=== PATIENT | male | born 1960 | race Caucasian/White ===

== ENCOUNTER 2021-12-22 19:11 | Emergency (ER) | payer SELFPAY ==
[2021-12-22 19:17] VITALS: BMI 27.3
[2021-12-22 19:21] VITALS: BP 121/68; PULSE 61; RESP 16; TEMP 36.3; O2SAT 97
--- NOTE | 2021-12-22 20:07 | XRR_ITS ---
PROCEDURE INFORMATION: Exam: XR Right Hand Exam date and time: 12/22/2021 8:16 PM Age: 61 years old Clinical indication: Pain; Hand; Right; Additional info: Injury TECHNIQUE: Imaging protocol: Radiologic exam of the Right hand. Views: 3 or more views. COMPARISON: No relevant prior studies available. FINDINGS: Bones/joints: Old healed fracture deformities of the 1st and 5th metacarpals. No acute fracture is seen. No dislocation. Soft tissues: No abnormal soft tissue calcifications. No radiopaque foreign body. XR/XR hand RT min 3V* [id number] IMPRESSION: Old healed fracture deformities of the 1st and 5th metacarpals. No acute fracture or dislocation.
--- NOTE | 2021-12-22 20:07 | W.ED.EXTPRO ---
HPI - Extremity Problem General: Chief complaint: Extremity Injury, Upper Stated complaint: right hand injury Time Seen by Provider: 12/22/21 20:04 History of Present Illness: 61-year-old male patient comes in today for injury to the dorsal right hand. Patient was at work today and believes he hit his hand against the equipment. Patient reports some tenderness to the dorsal aspect of the hand. There is obvious swelling to the hand patient has normal range of motion. Review of Systems General: Reports: 10 or more systems reviewed and unremarkable except in HPI and below Musc: Reports: extremity pain and extremity swelling Physical Exam Const: COMMON NORMALS: alert HENMT: COMMON NORMALS: atraumatic HEAD & SCALP: atraumatic Neck/C-Spine: COMMON NORMALS: full ROM Resp: COMMON NORMALS: normal respiratory effort Cardio: COMMON NORMALS: regular rate RATE: regular rate Extremity: RIGHT UPPER EXTREMITY: Yes hand & digits (Mild swelling and tenderness noted to the dorsal hand) Right hand and digits: Yes inspection, Yes palpation and Yes ROM exam (Normal) Neuro: SENSORIUM/ORIENTATION: Yes alert Skin: COMMON NORMALS: no rashes or lesions noted GENERAL SKIN EXAM: no rashes or lesions noted Course Vital Signs: Vital signs: Vital Signs Temperature 97.3 F L 12/22/21 19:21 Pulse Rate 61 12/22/21 19:21 Respiratory Rate 16 12/22/21 19:21 Blood Pressure 121/68 12/22/21 19:21 Pulse Oximetry 97 12/22/21 19:21 MDM - Extremity (Nontraumatic) Medical Decision Making Patient comes in for evaluation of injury to the right hand. On exam there is some swelling and tenderness to the dorsal right hand. Patient has good normal range of motion of the hand. No palpable crepitus or deformity is noted. Differential diagnosis includes fracture, sprain, contusion, dislocation. X-ray noted no acute fracture or dislocation. Reviewed exam with patient with recommendations for treatment and follow-up. Patient reported understanding agreed to plan. Discharge Plan Discharge Patient Disposition: Home Clinical Impression: Contusion of hand, right Qualifiers: Encounter type: initial encounter Qualified Code(s): S60.221A - Contusion of right hand, initial encounter Condition: Stable Discharge Orders: Discharge ED (Routine); Ordered 12/22/21 Ordered By: Volodymyr Maher Discharge Diet: Usual diet Discharge Activity: Increase activity as tolerated Patient Instructions: Contusion in Adults (ED) Activity Restrictions/Additional Instructions: Wear a elastic bandage for comfort and support. Use ice pack to the area for further pain. Increase activity as tolerated. Follow-up with primary care as needed. Use acetaminophen and ibuprofen to help with pain. Coding Level of Care Code ED Bilingual Hr Generalist for Casey Fwbrent Exam Detailed
== END 2021-12-22 20:39 | disposition home or self-care (01) ==
PROVIDERS: Emergency Provider Nurse Practitioner Family
DX: S60.221A Contusion of right hand, initial encounter (principal); W22.8XXA Striking against or struck by other objects, initial encounter
CPT/HCPCS: 73130; 99283

== ENCOUNTER 2022-10-24 12:56 | Inpatient (IN) | payer MEDICAID, SELFPAY ==
[2022-10-24 13:02] VITALS: BP 129/69; PULSE 62; RESP 16; TEMP 36.9; O2SAT 98; BMI 24.6
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
--- NOTE | 2022-10-24 13:33 | CT_ITS ---
WS: [id number] CT NECK WITH CONTRAST HISTORY: L neck abscess TECHNIQUE: Contiguous 2 mm axial images are performed through the neck with intravenous contrast. Sa gittal and coronal reformats are also submitted. All CT scans at [facility] use at least one of these dose optimization techniques: automated exposure control; mA and/or kV adjustment per patien t size (includes targeted exams where dose is matched to clinical indication); or iterative reconstru ction. CONTRAST: CONTRAST: Omnipaque 350; 100 mL IV. DLP: 188.88 mGy.cm COMPARISON: None available. Nasopharynx, oropharynx, hypopharynx and larynx are unremarkable. No soft tissue masses or abnormal e nhancement. Torus tubarius and fossa of Rosenmuller and parapharyngeal fat are normal. Mildly hyperemic and reactive lymph nodes are noted involving level 5A lymph nodes on the left with t he largest measuring 12 mm in diameter. Moderate amount of soft tissue inflammatory changes with edema and skin thickening along the left fac ial bones and submandibular region. There is thickening and edema extending along the left platysmas muscle. Edema extends over the mandible and maxilla and masseter space. There is no well-formed fluid collection. Soft tissue edema extends near the midline at the level of the hyoid bone. No compromise of the airway. No abnormality noted at the vocal cord level. Moderate degenerative changes at C5-6 and C6-7. C5 retrolisthesis by 4 mm. Mild ethmoid air cell disease. Negative orbits and globes. Mastoid air cells are clear. Mild atherosclerosis involving the cervical carotid arteries. No occlusi ons or obstructions. Thyroid gland is negative. Lung apices are clear. IMPRESSION: 1. Moderate soft tissue edema along the left facial bones to include the masseter space and the platy smas. There is no focal abscess collection. The source of the edema is probably infectious or inflamm atory. There are a few reactive lymph nodes at level 5A on the left. No obstruction of the parotid or submandibular ducts are identified. Etiology may be dental in origin but there is no obvious dental caries. 2. No compromise of the airway.
[2022-10-24] MEDS: vancomycin 1,000 MG in sodium chloride 0.9% 250 ML 250 MG IV (13:44)
[2022-10-24 13:47] LABS: Basophils % 0.2 %; Eosinophils # 0.1 10^3/uL (0.0-0.8); Eosinophils % 0.6 %; Hematocrit 39.1 % (42.0-52.0); Hemoglobin 13.5 g/dL (11.7-16.6); Lymphocytes % 18.8 %; Mean Corpuscular HGB Conc 34.5 g/dL (30.0-36.0); Mean Corpuscular Hemoglobin 32.4 pg (28.0-34.0); Mean Corpuscular Volume 93.8 fl (80-94); Mean Platelet Volume 9.1 fL (7.4-10.4); Monocytes # 1.2 10^3/uL (0.2-0.9); Monocytes % 11.6 %; Neutrophils % 68.1 %; Nucleated Red Blood Cells % 0 %; Platelet Count 142 10^3/cmm (130-400); Red Blood Count 4.17 10^6/uL (4.1-5.3); Red Cell Distribution Width 12.5 % (12.1-15.1); White Blood Count 10.7 10^3/uL (4.0-10.0)
[2022-10-24 13:55] LABS: Alanine Aminotransferase 16 U/L (0-41); Albumin Level 4.1 g/dL (3.5-5.2); Alkaline Phosphatase 76 U/L (40-130); Anion Gap 15.7 (5-19); Aspartate Amino Transferase 16 U/L (0-40); Blood Urea Nitrogen 14 mg/dL (6-20); Calcium 8.9 mg/dL (8.5-10.5); Carbon Dioxide 22 mmol/L (22-29); Chloride 105 mmol/L (98-107); Globulin 2.8 g/dL (1.3-4.6); Glomerular Filtration Rate 86.4 mL/min (90-130); Glucose 115 mg/dL (65-115); Osmolality Calculated 289 mOsm/kg (285-295); Potassium 3.7 mmol/L (3.5-5.1); Sodium 139 mmol/L (136-145); Total Bilirubin 0.4 mg/dL (0.15-1.2); Total Protein 6.9 g/dL (6.6-8.7)
[2022-10-24 13:56] LABS: Lactic Sepsis W/Reflex 0.9 mmol/L (0.5-2.2)
[2022-10-24] MEDS: iohexol 350 mg/mL 500 mL Btl (per mL) IV (14:00)
[2022-10-24 14:16] VITALS: BP 125/73; PULSE 56; O2SAT 96
[2022-10-24 15:15] VITALS: BP 134/89; PULSE 98; O2SAT 99
--- NOTE | 2022-10-24 15:58 | PC.NURSE ---
Food provided with Dr. Judge's permission.
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
[2022-10-24 17:13] VITALS: BP 128/74; PULSE 85; RESP 15; TEMP 36.8; O2SAT 95
[2022-10-24] MEDS: metroNIDAZOLE IV 500 MG/100 ML PREMIX 100 MG IV (18:04)
[2022-10-24] MEDS: cefepime 2,000 MG in sodium chloride 0.9% (plus) 50 ML 100 MG IV (18:04)
[2022-10-24] MEDS: sodium chloride 0.9% 1,000 ML 100 ML IV (18:04)
[2022-10-24 20:00] VITALS: BP 132/84; PULSE 77; RESP 19; TEMP 37.9; O2SAT 97
[2022-10-24] MEDS: vancomycin 1,250 MG/250 ML PIGGYBACK 200 MG IV (21:05)
[2022-10-24] MEDS: acetaminophen 325 mg Tablet 650 MG PO (21:11)
[2022-10-24 23:35] VITALS: BP 126/64; PULSE 74; RESP 19; TEMP 37.3; O2SAT 96
[2022-10-25] MEDS: metroNIDAZOLE IV 500 MG/100 ML PREMIX 100 MG IV ×2 (00:30→10:54)
[2022-10-25 04:00] VITALS: BP 132/72; PULSE 64; RESP 19; TEMP 36.9; O2SAT 97
[2022-10-25] MEDS: sodium chloride 0.9% 1,000 ML 100 ML IV ×2 (05:16→16:08)
[2022-10-25] MEDS: cefepime 2,000 MG in sodium chloride 0.9% (plus) 50 ML 100 MG IV ×2 (05:16→18:04)
[2022-10-25 05:17] LABS: Basophils % 0.4 %; Eosinophils # 0.3 10^3/uL (0.0-0.8); Eosinophils % 2.6 %; Hematocrit 36.1 % (42.0-52.0); Hemoglobin 12.2 g/dL (11.7-16.6); Lymphocytes # 2.1 10^3/uL (0.8-4.8); Lymphocytes % 20.8 %; Mean Corpuscular HGB Conc 33.8 g/dL (30.0-36.0); Mean Corpuscular Hemoglobin 32.5 pg (28.0-34.0); Mean Corpuscular Volume 96.3 fl (80-94); Mean Platelet Volume 9.3 fL (7.4-10.4); Monocytes # 1.2 10^3/uL (0.2-0.9); Monocytes % 12.1 %; Neutrophils # 6.38 10^3/uL (1.8-7.7); Neutrophils % 63.7 %; Nucleated Red Blood Cells % 0 %; Platelet Count 138 10^3/cmm (130-400); Red Blood Count 3.75 10^6/uL (4.1-5.3); Red Cell Distribution Width 12.6 % (12.1-15.1)
[2022-10-25 05:49] LABS: Anion Gap 12.7 (5-19); Blood Urea Nitrogen 15 mg/dL (6-20); Calcium 8.5 mg/dL (8.5-10.5); Carbon Dioxide 22 mmol/L (22-29); Chloride 109 mmol/L (98-107); Glomerular Filtration Rate 98.9 mL/min (90-130); Glucose 100 mg/dL (65-115); Osmolality Calculated 291 mOsm/kg (285-295); Potassium 3.7 mmol/L (3.5-5.1); Sodium 140 mmol/L (136-145)
[2022-10-25 07:36] VITALS: BP 118/77; PULSE 70; RESP 21; TEMP 36.5; O2SAT 95
[2022-10-25] MEDS: acetaminophen 325 mg Tablet 650 MG PO ×2 (07:54→16:16)
[2022-10-25] MEDS: vancomycin 1,250 MG/250 ML PIGGYBACK 200 MG IV ×2 (09:25→20:02)
--- NOTE | 2022-10-25 09:34 | PC.CHAP ---
Pastoral Care Encounter/Spiritual Assessment Type of Contact [] Declined slabber visit [] Patient/Family/Request visit [] Outpatient visit [] Follow-up visit [] Physician referral [] Code/Alert [x] Routine visit [] Staff referral [] Actively dying [] Patient sleeping [] Family support [] [] Out of room [] Palliative care [] [] Receiving care in room [] Pre-surgical visit [] Trauma [] Long length of stay [] ICU visit [] Other: Relational/Emotional Strength [x] Patient feels connected with others/family/visitors/staff [] Distress [] Loneliness/isolation [] Abandonment Spirituality of Patient x] Person of Dacia [] Attends Tenriism of their Dacia [x] Believes in Prayer [] Reads Bible or Synagogue materials [] There are Spiritual issues to be addressed Heat And Frost Insulator Helper Interventions [x] Prayer [x] Active listening [] Non-anxious presence [x] Spiritual/emotional support [] Crisis/trauma care [] Spiritual counseling [] Bereavement support [] Provided bereavement packet [] Provided Bible/devotional materials [] Provided toy/stuffed animal, coloring book to patient or family member [] Provided Communion [] Anointing/[place] [] Salvation [] Completed spiritual assessment [] Other: Impact on Illness or Injury [] Angry [] Fearful [] Anxious [] Often cries [] Exhaustion [] Unable to work [] Unable to attend congregational [] Unable to walk/stand [] Unable to read [] Unable to drive [] Unable to eat/drink [] Unable to sleep [] Unable to be with family [] Patient intubated [] Other: Summary Time spent with patient 5 min
[2022-10-25 11:41] VITALS: BP 126/78; PULSE 62; RESP 18; TEMP 36.5; O2SAT 97
[2022-10-25] MEDS: lanolin oint 7 gm 1 APPLIC TOPICAL (12:49)
--- NOTE | 2022-10-25 12:49 | P.PN_ITS ---
Subjective Subjective: He had a low-grade temp overnight, states that he was having sweats. Today feeling slightly better. Still swelling, tenderness left side neck/submandibular localized swelling. Vitals/I&O/Wt Last Vital Signs Temp 97.7 F 10/25/22 11:41 Pulse 62 10/25/22 11:41 Resp 18 10/25/22 11:41 BP 126/78 10/25/22 11:41 Pulse Ox 97 10/25/22 11:41 O2 Del Method Room Air 10/25/22 11:41 10/24/22 10/25/22 10/25/22 22:59 06:59 14:59 Intake Total 890 / 890 1106.667 / 1995.667 600 / 600 Balance 890 / 890 1106.667 / 1995.667 600 / 600 Weight last 48 hrs Weight 75.75 kg Physical Exam Const: COMMON NORMALS: patient oriented x3 and alert GENERAL APPEARANCE: cooperative ORIENTATION/CONSCIOUSNESS: Yes awake HENMT: COMMON NORMALS: oropharynx normal Neck/C-Spine: COMMON NORMALS: no JVD OTHER: Left-sided neck erythema surrounding central area of swelling upper neck/left submandibular area, small area of eschar/excoriation, no drainage. No tunneling or undermining. Resp: COMMON NORMALS: normal respiratory effort and clear to auscultation bilaterally AUSCULTATION: clear to auscultation bilaterally Cardio: COMMON NORMALS: no JVD, regular rhythm, S1 normal heart sound present, S2 normal heart sound present and No murmurs present (Cardio) RHYTHM: regular rhythm HEART SOUNDS: S1 normal heart sound present and S2 normal heart sound present GI: COMMON NORMALS: Normal to inspection, nondistended, normoactive bowel soun ds present, Soft to palpation and non-tender PALPATION: Yes Soft to palpation Extremity: COMMON NORMALS: no joint enlargement and no pedal edema Neuro: COMMON NORMALS: patient oriented x3 and moves all extremities SENSORIUM/ORIENTATION: Yes alert Skin: COMMON NORMALS: no rashes or lesions noted GENERAL SKIN EXAM: no rashes or lesions noted OTHER: As above Data 10/25/22 04:36 10/25/22 04:36 Micro: Microbiology 10/24/22 13:46 Blood Culture - Preliminary Blood SPECIMEN COLLECTED 10/24/22 13:44 Blood Culture - Preliminary Blood SPECIMEN COLLECTED A&P Assessment and plan (1) Cellulitis: Slightly less intensely erythematous left side neck, no decrease in the size of erythematous area, but without further expansion. Localized swelling persists. No drainage. We will stop Flagyl. Overnight with low-grade temp on 100.4. Sweats. No leukocytosis, no sepsis. Discussed with him options, continue observation hospital for now with IV antibiotics and will reassess due to risk of localized infection spread, with improvement consideration of discharge home with oral antibiotic, otherwise in case of worsening or drainage consideration of reimaging. WBC noted with improvement noted 10. Neutrophils WNL. Chemistry noted unremarkable with unremarkable kidney and liver parameters. Noted improved sinus tachycardia. Pain control as needed for now with Tylenol, Toradol. (2) Smoking addiction: Continue to encourage cessation. nicotine patches, lozenges will be available for him, he declines to start timeout right. As per discussion ordering as needed. Plan Discussed with discharge planning. Attestations Medical Necessity Statement*: Requires continued hospitalization for assessment management of large area of cellulitis on the left side neck, submandibular area with also localized swelling and a gentleman with history of recurrent abscesses. Diagnoses Cellulitis L03.90 Smoking addiction F17.200
[2022-10-25 16:00] VITALS: BP 154/74; PULSE 66; RESP 20; TEMP 36.4; O2SAT 96
[2022-10-25] MEDS: HYDROcodone-acetaminophen 5-325 mg Tablet 1 TAB PO (17:16)
[2022-10-25 19:46] VITALS: BP 133/66; PULSE 68; RESP 18; TEMP 36.8; O2SAT 95
[2022-10-25] MEDS: guaiFENesin 600 mg Tablet 1200 MG PO (20:01)
[2022-10-26] VITALS (7 sets, daily range): BP systolic 128–160; BP diastolic 9–90; PULSE 53–74; RESP 16–18; TEMP 36.5–37; O2SAT 98–99
[2022-10-26] MEDS: HYDROcodone-acetaminophen 5-325 mg Tablet 1 TAB PO ×3 (00:35→21:20)
[2022-10-26 05:00] LABS: Basophils % 0.4 %; Eosinophils # 0.4 10^3/uL (0.0-0.8); Eosinophils % 4.9 %; Hematocrit 34.3 % (42.0-52.0); Hemoglobin 11.7 g/dL (11.7-16.6); Lymphocytes # 2.3 10^3/uL (0.8-4.8); Mean Corpuscular HGB Conc 34.1 g/dL (30.0-36.0); Mean Corpuscular Hemoglobin 33.3 pg (28.0-34.0); Mean Corpuscular Volume 97.7 fl (80-94); Mean Platelet Volume 9.6 fL (7.4-10.4); Monocytes # 0.9 10^3/uL (0.2-0.9); Monocytes % 10.3 %; Neutrophils # 4.67 10^3/uL (1.8-7.7); Neutrophils % 56.2 %; Nucleated Red Blood Cells % 0 %; Platelet Count 119 10^3/cmm (130-400); Red Blood Count 3.51 10^6/uL (4.1-5.3); Red Cell Distribution Width 12.9 % (12.1-15.1); White Blood Count 8.3 10^3/uL (4.0-10.0)
[2022-10-26 05:23] LABS: Blood Urea Nitrogen 14 mg/dL (6-20); Calcium 8.1 mg/dL (8.5-10.5); Carbon Dioxide 21 mmol/L (22-29); Chloride 111 mmol/L (98-107); Glomerular Filtration Rate 115.4 mL/min (90-130); Glucose 95 mg/dL (65-115); Osmolality Calculated 290 mOsm/kg (285-295); Sodium 140 mmol/L (136-145)
[2022-10-26] MEDS: sodium chloride 0.9% 1,000 ML 100 ML IV ×2 (05:37→17:24)
[2022-10-26] MEDS: cefepime 2,000 MG in sodium chloride 0.9% (plus) 50 ML 100 MG IV ×2 (05:39→17:22)
[2022-10-26] MEDS: acetaminophen 325 mg Tablet 650 MG PO (07:00)
[2022-10-26] MEDS: vancomycin 1,250 MG/250 ML PIGGYBACK 200 MG IV (08:15)
[2022-10-26] MEDS: guaiFENesin 600 mg Tablet 1200 MG PO ×2 (08:15→17:23)
[2022-10-26 08:38] LABS: Vancomycin Trough 11.1 ug/mL (10-15)
--- NOTE | 2022-10-26 09:45 | US_ITS ---
WS: [id number] ULTRASOUND SOFT TISSUES left submandibular region. HISTORY: L side submandibular/upper neck COMPARISON: CT 10/24/2022. TECHNIQUE: 2-D and color Doppler imaging is submitted. There is a complex collection containing soft tissue and fluid component in the left submandibular re gion. There is mild hyperemia. The collection measures 3.4 x 1.4 cm. This corresponds to the area of soft tissue thickening and edema noted on the recent CT. The collection appears to be more well forme d today and consistent with a phlegmon. The venegas are not well formed at this time to suggest a conta ined abscess. IMPRESSION: Left cervical chain phlegmon has developed since the CT of 10/24/2022. Phlegmon measures 3.4 x 1.4 cm. On the prior CT changes were more edema and inflammation.
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
--- NOTE | 2022-10-26 17:37 | PM.PN ---
Subjective Subjective: He feels that today tenderness is somewhat less, but feels that the area had started to protrude somewhat more. Feels like it might be organizing into an abscess. Vitals/I&O/Wt Last Vital Signs Temp 98.2 F 10/26/22 15:38 Pulse 54 L 10/26/22 15:38 Resp 16 10/26/22 15:38 BP 153/9 10/26/22 15:38 Pulse Ox 98 10/26/22 15:38 O2 Del Method Room Air 10/25/22 16:00 10/26/22 10/26/22 10/26/22 06:59 14:59 22:59 Intake Total 1113.333 / 4323.333 610 / 610 1000 / 1610 Balance 1113.333 / 4323.333 610 / 610 1000 / 1610 Physical Exam Narrative: Accompanied by his and mother. Const: COMMON NORMALS: patient oriented x3 and alert GENERAL APPEARANCE: cooperative ORIENTATION/CONSCIOUSNESS: Yes awake HENMT: COMMON NORMALS: oropharynx normal Neck/C-Spine: COMMON NORMALS: no JVD OTHER: Left-sided neck with diminished erythema surrounding persistent central area of swelling upper neck/left submandibular area, small area of eschar/excoriation, no drainage. No tunneling or undermining. Resp: COMMON NORMALS: normal respiratory effort and clear to auscultation bilaterally AUSCULTATION: clear to auscultation bilaterally Cardio: COMMON NORMALS: no JVD, regular rhythm, S1 normal heart sound present, S2 normal heart sound present and No murmurs present (Cardio) RHYTHM: regular rhythm HEART SOUNDS: S1 normal heart sound present and S2 normal heart sound present GI: COMMON NORMALS: Normal to inspection, nondistended, normoactive bowel sounds present, Soft to palpation and non-tender PALPATION: Yes Soft to palpation Extremity: COMMON NORMALS: no joint enlargement and no pedal edema Neuro: COMMON NORMALS: patient oriented x3 and moves all extremities SENSORIUM/ORIENTATION: Yes alert Skin: COMMON NORMALS: no rashes or lesions noted GENERAL SKIN EXAM: no rashes or lesions noted OTHER: As above Data 10/26/22 04:11 10/26/22 04:11 Micro: Microbiology 10/24/22 13:46 Blood Culture - Preliminary Blood NEGATIVE TO DATE 10/24/22 13:44 Blood Culture - Preliminary Blood NEGATIVE TO DATE A&P Assessment and plan (1) Cellulitis: So far no further fever. No leukocytosis. No sepsis at this time. Erythema is less intense. However, he feels slightly more protrusion in the area, the area does appear slightly more bulging. Discussed with him assessment by ultrasound, consideration of I&D which she would like to pursue, obtained, noted phlegmon on ultrasound, discussed with general surgery consultation for assessment for possible I&D. Appreciate Documentation of findings and plans For I&D in the morning. WBC improved down to 8.3. Neutrophils noted normal. Chemistry WNL. Follow-up CBC, chemistry. Continue IV antibiotic coverage while inpatient. Pain control, Tylenol, Toradol as needed, [place] as needed. (2) Smoking addiction: Continue to encourage cessation. nicotine patches, lozenges will be available for him, he declines to start timeout right. As per discussion ordering as needed. Plan Discussed with case management in rounds. He is set up for PCP. Attestations Medical Necessity Statement*: Continue admission for assessment management of large area of cellulitis on upper neck, submandibular area, with phlegmon, With the risk of localized progression of infection, plans for I&D. Diagnoses Cellulitis L03.90 Smoking addiction F17.200
[2022-10-26] MEDS: ketorolac 30 mg/mL INJ 15 MG IVP (19:32)
[2022-10-26] MEDS: vancomycin 1,500 MG/300 ML PIGGYBACK 200 MG IV (21:21)
[2022-10-27] VITALS (20 sets, daily range): BP systolic 119–160; BP diastolic 47–87; PULSE 43–68; RESP 16–21; TEMP 36.2–36.9; O2SAT 94–100
[2022-10-27] MEDS: HYDROcodone-acetaminophen 5-325 mg Tablet 1 TAB PO ×3 (02:29→16:39)
[2022-10-27] MEDS: sodium chloride 0.9% 1,000 ML 100 ML IV ×2 (04:26→16:37)
[2022-10-27] MEDS: ketorolac 30 mg/mL INJ 15 MG IVP ×2 (04:32→19:19)
[2022-10-27 05:05] LABS: Basophils % 0.5 %; Eosinophils % 5.8 %; Hematocrit 32.8 % (42.0-52.0); Hemoglobin 11.2 g/dL (11.7-16.6); Lymphocytes # 2.5 10^3/uL (0.8-4.8); Lymphocytes % 42.4 %; Mean Corpuscular HGB Conc 34.1 g/dL (30.0-36.0); Mean Corpuscular Volume 96.8 fl (80-94); Mean Platelet Volume 9.4 fL (7.4-10.4); Monocytes % 9.2 %; Neutrophils # 2.46 10^3/uL (1.8-7.7); Neutrophils % 41.9 %; Platelet Count 126 10^3/cmm (130-400); Red Blood Count 3.39 10^6/uL (4.1-5.3); Red Cell Distribution Width 12.5 % (12.1-15.1); White Blood Count 5.9 10^3/uL (4.0-10.0)
[2022-10-27 05:06] LABS: Eosinophils # 0.3 10^3/uL (0.0-0.8); Monocytes # 0.5 10^3/uL (0.2-0.9); Nucleated Red Blood Cells % 0 %
[2022-10-27 05:26] LABS: Anion Gap 12.2 (5-19); Blood Urea Nitrogen 12 mg/dL (6-20); Calcium 8.1 mg/dL (8.5-10.5); Carbon Dioxide 21 mmol/L (22-29); Chloride 112 mmol/L (98-107); Glomerular Filtration Rate 115.4 mL/min (90-130); Glucose 90 mg/dL (65-115); Osmolality Calculated 291 mOsm/kg (285-295); Potassium 4.2 mmol/L (3.5-5.1); Sodium 141 mmol/L (136-145)
[2022-10-27] MEDS: cefepime 2,000 MG in sodium chloride 0.9% (plus) 50 ML 100 MG IV ×2 (05:57→18:55)
--- NOTE | 2022-10-27 08:56 | PM.PN ---
Vitals/I&O/Wt Last Vital Signs Temp 98.5 F 10/27/22 07:30 Pulse 59 L 10/27/22 07:30 Resp 18 10/27/22 07:30 BP 160/79 10/27/22 07:30 Pulse Ox 97 10/27/22 07:30 O2 Del Method Room Air 10/27/22 07:30 10/26/22 10/27/22 10/27/22 22:59 06:59 14:59 Intake Total 1409 1300 / 3320 50 / 50 Balance 1409 1300 / 3320 50 / 50 Data 10/27/22 04:22 10/27/22 04:22 A&P Assessment and plan (1) Neck abscess: Plan Incision and drainage of neck abscess The risk and benefits of the procedure, including but not limited to, scar, numbness, pain, recurrence, damage to surrounding structures, were explained to the patient. He is understanding of the risks and wishes to proceed. Attestations Medical Necessity Statement*: per primary Coding Level of Care Code Acute Code for Chg Fwd Diagnoses Neck abscess L02.11
[2022-10-27] MEDS: vancomycin 1,500 MG/300 ML PIGGYBACK 200 MG IV ×2 (09:41→20:47)
[2022-10-27] MEDS: guaiFENesin 600 mg Tablet 1200 MG PO ×2 (09:42→18:56)
[2022-10-27] MEDS: HYDROmorphone 1 mg/mL INJ 1 mL 0.5 MG IVP (13:13)
[2022-10-27] MEDS: sodium chloride 0.9% 1,000 ML 30 ML IV (13:14)
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
--- NOTE | 2022-10-27 14:31 | P.OP_ITS ---
Operative Report Date of procedure: October 27, 2022 Pre-op diagnosis: Neck abscess Post-op diagnosis: same Procedure done: Incision and drainage of neck abscess Implants: Half-inch iodoform Specimens removed/disposition: Cultures Surgeon: Dr. Magdiel Drake DO Anesthesia: General Estimated blood loss (mL): 5 Complications: None apparent Brief History: This very pleasant 61-year-old gentleman who presented to the hospital with an abscess on his neck. Incision and drainage was indicated. The risk and benefit s were explained and documented. Procedure: Patient was wheeled in operative room and remained on the hospital bed in the supine position. General endotracheal ovation was achieved by the department anesthesia. The area was inspected prepped and draped in usual sterile fashion. Timeouts were performed. All present were in agreement. A 15 blade scalpel was then used to extend the opening where the abscess was draining. Hemostats were placed into the abscess cavity and loculations were broke apart manually. Cultures were taken. Abscess cavity was then irrigated. Half-inch iodoform gauze was packed into the wound. Sterile bandages were applied. Patient tolerated procedure well.
--- NOTE | 2022-10-27 15:12 | ANE.PACU2 ---
Inpatient post-anesthesia follow up: Airway intact: Yes Vital signs: Temperature 97.2 F Pulse Rate 61 Respiratory Rate 18 Blood Pressure 132/60 Pulse Oximetry 98 Oxygen Delivery Me thod Simple Mask Oxygen Flow Rate 6 Fraction of Inspir ed Oxygen Hydration adequate: Yes Nausea and vomiting: No Pain level: 2 Mental status: Baseline
--- NOTE | 2022-10-27 17:12 | P.PN_ITS ---
Subjective Subjective: This morning he reports he is doing all right. Denies any additional complaints. No new pain or discomfort. Vitals/I&O/Wt Last Vital Signs Temp 98 F 10/27/22 16:16 Pulse 52 L 10/27/22 16:16 Resp 18 10/27/22 16:16 BP 147/81 10/27/22 16:16 Pulse Ox 96 10/27/22 16:16 O2 Del Method Room Air 10/27/22 16:16 O2 Flow Rate 6 10/27/22 14:46 10/27/22 10/27/22 10/27/22 06:59 14:59 22:59 Intake Total 1300 / 3320 1175 / 1175 50 / 1225 Output Total 0 / 0 Balance 1300 / 3320 1175 / 1175 50 / 1225 Physical Exam Narrative: Accompanied by his and mother. Const: COMMON NORMALS: patient oriented x3 and alert GENERAL APPEARANCE: cooperative ORIENTATION/CONSCIOUSNESS: Yes awake HENMT: COMMON NORMALS: oropharynx normal Neck/C-Spine: COMMON NORMALS: no JVD OTHER: Left-sided neck with diminished erythema surrounding persistent central area of swelling upper neck/left submandibular area, small area of eschar/excoriation, no drainage. No tunneling or undermining. Resp: COMMON NORMALS: normal respiratory effort and clear to auscultation bilaterally AUSCULTATION: clear to auscultation bilaterally Cardio: COMMON NORMALS: no JVD, regular rhythm, S1 normal heart sound present, S2 normal heart sound present and No murmurs present (Cardio) RHYTHM: regular rhythm HEART SOUNDS: S1 normal heart sound present and S2 normal heart sound present GI: COMMON NORMALS: Normal to inspection, nondistended, normoactive bowel sounds present, Soft to palpation and non-tender PALPATION: Yes Soft to palpation Extremity: COMMON NORMALS: no joint enlargement and no pedal edema Neuro: COMMON NORMALS: patient oriented x3 and moves all extremities SENSORIUM/ORIENTATION: Yes alert Skin: COMMON NORMALS: no rashes or lesions noted GENERAL SKIN EXAM: no rashes or lesions noted OTHER: As above Data 10/27/22 04:22 10/27/22 04:22 A&P Assessment and plan (1) Cellulitis: Underwent I&D today. Noted wound cultures obtained. Follow-up. Continue antibiotic coverage. Will monitor in the hospital tonight due to noted bradycardia. Obtain twelve-lead EKG. Heart rate transiently down to 40s, but currently up to 60s. Potassium noted WNL this morning. Possibly related to anesthesia. Monitor on telemetry. WBC noted 5.9. Neutrophils normal. Noted some thrombocytopenia but better today at 1.6. Possibly secondary to infection, impending sepsis at presentation, but is improving. Possibility of cefepime adverse effect may be considered as well, but again is improving, will reassess blood counts in the morning. Discontinue in case of additional worsening. Follow-up CBC requested. Discussed with him continuation with oral antibiotics after discharge. Pain control, Tylenol, Toradol as needed, [place] as needed. Surgical documentation noted. (2) Smoking addiction: Continue to encourage cessation. nicotine patches, lozenges will be available for him, he declines to start timeout right. As per discussion ordering as needed. Plan Discussed plans with case management. He is set up for PCP for after discharge. Attestations Medical Necessity Statement*: Continue admission for assessment management of the cellulitis, abscess of upper neck, submandibular area, status post I&D, continue to bodies, monitor in hospital due to postoperative bradycardia. and High MDM includes described risk of complication, morbidity or mortality of management as documented Diagnoses Cellulitis L03.90 Smoking addiction F17.200
--- NOTE | 2022-10-27 19:01 | PC.NURSE ---
Pt has removed neck dressing twice during this nurse's shift. Nurse has explained importance of dressing and went over infection control.
[2022-10-28 02:00] VITALS: BP 125/75; PULSE 46; RESP 15; TEMP 36.5; O2SAT 90
[2022-10-28] MEDS: HYDROcodone-acetaminophen 5-325 mg Tablet 1 TAB PO ×2 (02:30→09:55)
[2022-10-28 03:57] VITALS: BP 154/71; PULSE 60; RESP 15; TEMP 36.6; O2SAT 96
[2022-10-28 04:55] LABS: Basophils % 0.2 %; Hematocrit 37.7 % (42.0-52.0); Hemoglobin 12.9 g/dL (11.7-16.6); Lymphocytes # 1.2 10^3/uL (0.8-4.8); Lymphocytes % 22.3 %; Mean Corpuscular HGB Conc 34.2 g/dL (30.0-36.0); Mean Corpuscular Hemoglobin 32.6 pg (28.0-34.0); Mean Corpuscular Volume 95.2 fl (80-94); Mean Platelet Volume 9.5 fL (7.4-10.4); Monocytes # 0.4 10^3/uL (0.2-0.9); Monocytes % 6.6 %; Neutrophils # 3.85 10^3/uL (1.8-7.7); Neutrophils % 70.4 %; Nucleated Red Blood Cells % 0 %; Platelet Count 162 10^3/cmm (130-400); Red Blood Count 3.96 10^6/uL (4.1-5.3); Red Cell Distribution Width 12.2 % (12.1-15.1); White Blood Count 5.5 10^3/uL (4.0-10.0)
[2022-10-28 05:13] LABS: Anion Gap 13.2 (5-19); Blood Urea Nitrogen 17 mg/dL (6-20); Calcium 8.7 mg/dL (8.5-10.5); Carbon Dioxide 21 mmol/L (22-29); Chloride 108 mmol/L (98-107); Glomerular Filtration Rate 98.9 mL/min (90-130); Glucose 159 mg/dL (65-115); Osmolality Calculated 291 mOsm/kg (285-295); Potassium 4.2 mmol/L (3.5-5.1); Sodium 138 mmol/L (136-145)
[2022-10-28] MEDS: cefepime 2,000 MG in sodium chloride 0.9% (plus) 50 ML 100 MG IV (05:37)
[2022-10-28 06:00] VITALS: PULSE 42
[2022-10-28 07:06] VITALS: BP 147/69; PULSE 51; RESP 18; TEMP 36.6; O2SAT 93
[2022-10-28] MEDS: guaiFENesin 600 mg Tablet 1200 MG PO (08:54)
[2022-10-28 08:57] LABS: Vancomycin Trough 16.6 ug/mL (10-15)
[2022-10-28] MEDS: vancomycin 1,500 MG/300 ML PIGGYBACK 200 MG IV (10:00)
[2022-10-28] MEDS: sodium chloride 0.9% 1,000 ML 100 ML IV (11:21)
[2022-10-28 12:35] VITALS: BP 155/79; PULSE 54; RESP 18; TEMP 36.6; O2SAT 98
--- NOTE | 2022-10-28 14:09 | ECG_ITS ---
[facility] Test Date: 2022-10-28 Pat Name: Fer Belle Department: Room: 251 Gender: Male Manager [employer]: : 1960 Requested By: Jayce Billings Order Number: [id number] David MD: Joao Chapman M.D. Measurements Intervals Felt Rate: 46 P: 58 LA: 155 QRS: -15 QRSD: 113 T: 40 QT: 441 QTc: 386 Interpretive Statements SINUS BRADYCARDIA MODERATE INTRAVENTRICULAR CONDUCTION DELAY [110+ ms QRS DURATION] No previous ECG available for comparison Electronically Signed On 10-28-2022 16:17:37 CDT by Joao Chapman M.D. [email or web address]
--- NOTE | 2022-10-28 14:31 | PM.DCS ---
Discharge Providers Date of Admission: 10/25/22 16:52 Date of Discharge: October 28, 2022 Attending Provider at Admission: Jayce Billings Attending Provider at Discharge: Jayce Billings Diagnoses at Discharge Discharge Diagnosis (1) Cellulitis: Status: Acute (2) Smoking addiction: Status: Acute Reason for Visit Reason for Visit: Spot on neck Brief History: Pleasant 61 old gentleman with recurrent skin infections in the past, but denies history of MRSA, denies history of diabetes, smoking addiction, had a small pimple-like lesion on the upper neck/under left side chin, which she thought may have been an ingrown hair and manipulated, within 2 days the lesion increased in size, with welling, surrounding swelling, erythema, has been having some chills.? Did not measure a fever.? Follow-up with urgent care today, and was referred for assessment to ER.? In ER CT scan obtained without suggestion of an abscess.? Observation requested due to rapid increase in size of the area.? Blood culture was collected.? Hospital Course Hospital Course Due to multiple prior abscesses, although he denied history of MRSA, was empirically treated with cefepime, MRSA coverage included with vancomycin, blood cultures collected, so far remaining negative. Please follow-up final cultures. Since no abscess was noted on initial CT, treated with continued on antibiotics. Erythema gradually decreasing in intensity and size. On 10/26 felt that the lesion was more bulging, assessed by ultrasound with finding of phlegmon, underwent I&D and packing on 10/28. Cultures obtained and pending. Please follow-up. Has been noted with some bradycardia heart rates in the 60s, yesterday somewhat worse down as low as 40s, mostly 50s. Sinus tachycardia on EKG. Chest pain-free. Asymptomatic. Electrolytes noted WNL. No sign of ischemia on EKG. Moderate intraventricular delay. Is set up with additional 3 days of Holter monitor, please follow-up. He is instructed to remove packing tomorrow, cover wound with dressing, he is given a course of antibiotic at discharge for now with empirically continued coverage for MRSA. Please follow-up for continued healing. Continue to encourage smoking cessation. Discharge Data Studies Completed and Pending Completed Studies During Hospitalization Category Date Time Status CT neck w con* [id number] Stat Cat Scan 10/24/22 13:33 Completed US soft tissue head neck [id number] Routine Ultrasound 10/26/22 09:45 Completed Pending at discharge Category Date Time Status Anaerobic Culture Routine Lab 10/27/22 14:30 Received Basic Metabolic Panel AM LABS Lab 10/29/22 04:00 Ordered Basic Metabolic Panel AM LABS Lab 10/30/22 04:00 Ordered Blood Culture Stat Lab 10/24/22 13:46 Results Complete Blood Count w/Auto AM LABS Lab 10/29/22 04:00 Ordered Complete Blood Count w/Auto AM LABS Lab 10/30/22 04:00 Ordered Wound Culture and Gram Stain Routine Lab 10/27/22 14:30 Received Laboratory Results WBC 5.5 10^3/uL (4.0-10.0) 10/28/22 04:13 RBC 3.96 10^6/uL (4.1-5.3) L 10/28/22 04:13 Hgb 12.9 g/dL (11.7-16.6) 10/28/22 04:13 Hct 37.7 % (42.0-52.0) L 10/28/22 04:13 MCV 95.2 fl (80-94) H 10/28/22 04:13 MCH 32.6 pg (28.0-34.0) 10/28/22 04:13 MCHC 34.2 g/dL (30.0-36.0) 10/28/22 04:13 RDW 12.2 % (12.1-15.1) 10/28/22 04:13 Plt Count 162 10^3/cmm (130-400) 10/28/22 04:13 MPV 9.5 fL (7.4-10.4) 10/28/22 04:13 Neut % (Auto) 70.4 % 10/28/22 04:13 Lymph % (Auto) 22.3 % 10/28/22 04:13 [place] % (Auto) 6.6 % 10/28/22 04:13 Eos % (Auto) 0.0 % 10/28/22 04:13 Baso % (Auto) 0.2 % 10/28/22 04:13 Neut # (Auto) 3.85 10^3/uL (1.8-7.7) 10/28/22 04:13 Lymph # (Auto) 1.2 10^3/uL (0.8-4.8) 10/28/22 04:13 [place] # (Auto) 0.4 10^3/uL (0.2-0.9) 10/28/22 04:13 Eos # (Auto) 0.0 10^3/uL (0.0-0.8) 10/28/22 04:13 Baso # (Auto) 0.0 10^3/uL (0.0-0.1) 10/28/22 04:13 Nucleated RBC % (auto) 0 % 10/28/22 04:13 Nucleated RBCs # 0.0 /100WBC 10/28/22 04:13 Sodium 138 mmol/L (136-145) 10/28/22 04:13 Potassium 4.2 mmol/L (3.5-5.1) 10/28/22 04:13 Chloride 108 mmol/L (98-107) H 10/28/22 04:13 Carbon Dioxide 21 mmol/L (22-29) L 10/28/22 04:13 Anion Gap 13.2 (5-19) 10/28/22 04:13 BUN 17 mg/dL (6-20) 10/28/22 04:13 Creatinine 0.8 mg/dL (0.7-1.2) 10/28/22 04:13 GFR Calculation 98.9 mL/min (90-130) 10/28/22 04:13 Glucose 159 mg/dL (65-115) H 10/28/22 04:13 Calculated Osmolality 291 mOsm/kg (285-295) 10/28/22 04:13 Lactic Acid 0.9 mmol/L (0.5-2.2) 10/24/22 13:34 Calcium 8.7 mg/dL (8.5-10.5) 10/28/22 04:13 Total Bilirubin 0.4 mg/dL (0.15-1.2) 10/24/22 13:34 AST 16 U/L (0-40) 10/24/22 13:34 ALT 16 U/L (0-41) 10/24/22 13:34 Alkaline Phosphatase 76 U/L (40-130) 10/24/22 13:34 Total Protein 6.9 g/dL (6.6-8.7) 10/24/22 13:34 Albumin 4.1 g/dL (3.5-5.2) 10/24/22 13:34 Globulin 2.8 g/dL (1.3-4.6) 10/24/22 13:34 Vancomycin Trough 16.6 ug/mL (10-15) H 10/28/22 08:25 Vitals Last Vital Signs Temp 97.9 F 10/28/22 12:35 Pulse 54 L 10/28/22 12:35 Resp 18 10/28/22 12:35 BP 155/79 10/28/22 12:35 Pulse Ox 98 10/28/22 12:35 O2 Del Method Room Air 10/28/22 12:35 O2 Flow Rate 6 10/27/22 14:46 Discharge Plan Discharge Patient Disposition: Home Condition: Stable Prescriptions: New cephalexin 500 mg capsule 500 mg PO BID 7 Days Qty: 14 0RF linezolid 600 mg tablet 600 mg PO BID Qty: 14 0RF Discharge Orders: Discharge Order (Routine); Ordered 10/28/22 Ordered By: Jayce Billings Other Ambulatory Orders: ECG holter monitor 3 Days (Routine) Timeframe: 1 Day Facility: [facility] - Location: Radiology Ordered By: Jayce Billings Referrals: Christina Arroyo FNP-C [Primary Care Provider] - 11/04/22 9:20 am (This will be a new patient appointment. You will need your insurance card and ID. You will need to arrive 5-10mins early to complete paperwork. ) [facility], [Staff Physician] - 11/02/22 9:30 am () Patient Instructions: Cephalexin (By mouth) (Bio-Cef, Keflex), Linezolid (By mouth) (Zyvox), How to Stop Smoking (GEN), Cellulitis (GEN), Cigarette Smoking and Your Health (GEN), Skin Abscess Activity Restrictions/Additional Instructions: Remove packing tomorrow, cover with clean dressing. Follow-up with primary provider for reassessment. Follow-up with your primary provider also for assessment of your heart rates, a short-term monitor is also requested for you. Please stop smoking. Work with your primary doctor regarding options to help you quit. Discharge Attestations Time Spent in Discharge Care*: greater than 30 min Quality Metrics Clinical Quality Measures [ No reported AMI, CVA or VTE this stay] Coding Level of Care Code 92539 Total time (in minutes) for Discharge: 40 Diagnoses Cellulitis L03.90 Smoking addiction F17.200
== END 2022-10-28 16:25 | disposition home or self-care (01) | DRG 603 ==
LOC: ER 15:22 → MEDSURG 16:01
PROVIDERS: Surgery; Admitting Provider Internal Medicine; Emergency Provider Family Medicine; PCP Nurse Practitioner Family; Visit Provider Internal Medicine
PROC: 0J950ZZ Drainage of Left Neck Subcutaneous Tissue and Fascia, Open Approach (ICD-10-PCS; principal; 2022-10-27 15:45)
DX: L03.221 Cellulitis of neck (principal); I97.191 Other postprocedural cardiac functional disturbances following other surgery; L02.11 Cutaneous abscess of neck; F17.200 Nicotine dependence, unspecified, uncomplicated; Z86.19 Personal history of other infectious and parasitic diseases
CPT/HCPCS: 36415; 70491; 76536; 80048; 80053; 80202; 83605; 85025; 87040; 87070; 87075; 87077; 87186; 87205; 93005; 96365; 99285; G0378; J0692; J1100; J1170; J1885; J2405; J2704; J3010; J3370; J3490; J7030; J7050; Q9967